=== PATIENT | female | born 2000 | race Two or more races ===

== ENCOUNTER → 2025-03-15 | Outpatient (CLI) | payer MEDICAID, SELFPAY ==
--- NOTE | 2025-03-15 | XR_ITS ---
Examination: Lumbar spine, 5 views Technique: Lumbar spine AP, lateral, coned lateral lower lumbar spine, bilateral obliques 5 views Exam date and time: March 15, 2025 1123 hours INDICATIONS: Low back pain beginning several years ago. FINDINGS: Satisfactory alignment lumbar vertebral bodies. No lumbar fracture. Mild to moderate disc narrowing L5-S1. No spondylolisthesis IMPRESSION: Mild to moderate disc narrowing L5-S1
== END | disposition home or self-care (01) ==
LOC: CDIM 11:05
PROVIDERS: PCP Nurse Practitioner Family; Referring Provider Nurse Practitioner Family; Visit Provider Nurse Practitioner Family
DX: M48.07 Spinal stenosis, lumbosacral region (principal)
CPT/HCPCS: 72110